=== PATIENT | female | born 1955 | race Caucasian/White ===

== ENCOUNTER 2017-01-10 13:00 | Day surgery (SDC) | payer MEDICARE, OTHER ==
[2017-01-09 09:52] VITALS: BMI 26.6
[~2017-01-10 13:00] MED LIST: LACTATED RINGERS 1,000 ML IV SCH; LIDOCAINE 1% 20 ML VIAL (10MG/ML) FOR IV START INTRADERMA PRN
[2017-01-10 14:10] VITALS: RESP 16; TEMP 97.6
[2017-01-10] MEDS ORDERED: PROPOFOL 10 MG/ML 20 ML VIAL IV ONE (15:05)
[2017-01-10] MEDS ORDERED: LIDOCAINE 1% INJ 10MG/ML (20 ML MDV) ONE (15:05)
--- NOTE | 2017-01-10 15:52 | P.PCN ---
Date of Procedure: 01/10/17 Procedure(s) Performed: Procedures: 1. Esophagogastroduodenoscopy and biopsy. 2. Colonoscopy and biopsy. Preoperative diagnosis: Abdominal pain and change in bowel habits. Postoperative diagnosis: 1. Small sliding hiatal hernia with no obvious esophagitis or complicated reflux disease. 2. Mild antral gastritis. 3. Multiple diminutive polyps in the distal sigmoid biopsied but no large polyps or cancer. 4. Colon shows no evidence of colitis. 5. Biopsies obtained from the duodenum, antrum, esophagus, right colon and sigmoid polyps. Preparation: HalfLytely prep. Sedation: Was provided by anesthesia. Brief clinical history: The patient is 61-year-old female who is referred for this evaluation for cause of abdominal pains and diarrhea that she has been experiencing for the last month or so. The patient has chronic stomach symptoms and history of peptic ulcer disease and mentioned that she has been always able to control her symptoms herself, however, this time the symptoms went on for too long with no control. She has nausea but no vomiting. No obvious bleeding. This would be her first upper and lower endoscopies. Procedure: With the patient on her left lateral decubitus position and after informed consent and adequate sedation, I passed the Olympus-GIF 160 video upper endoscope through the cricopharyngeus down the esophagus. GE junction was around 37-38 cm from the incisors and there was a small sliding hiatal hernia. The endoscope was then passed into the stomach which was insufflated with air and inspected in detail including the retroflex view in the cardia. Finally, the endoscope was passed through the pylorus into the duodenum. Pyloric channel, duodenal bulb, post bulbar area and descending duodenum appeared within normal limits. Antrum showed some mottling and erythema but no ulcers or erosions. The esophagus did not show any erosions, ulcers, strictures or Matthews's esophagus. I obtained biopsies from the duodenum, antrum and esophagus then the endoscope was withdrawn and I proceeded with the colonoscopy. Perianal area did not show any fissures or fistulas. There were no masses felt on digital rectal examination. The Olympus CFQ 160L video colonoscope was then inserted in the rectum in the usual fashion and advanced to the cecum. There were few scattered diminutive polyps in the distal sigmoid consistent with hyperplastic polyps, otherwise, the exam to the cecum showed healthy mucosa with no significant polyps or tumors or any obvious diverticular disease. I obtained biopsies from the right colon and from the sigmoid polyps then I retroflexed the endoscope in the rectum before the endoscope was withdrawn. The patient tolerated the procedure well. Plan: The patient was reassured. Will await pathology results and make further recommendations based on her course and biopsy results. She will follow-up with you as planned and I will be happy to see in the office of her symptoms persist.
[2017-01-10 16:13] VITALS: BP 132/66; PULSE 77
== END 2017-01-10 16:23 | disposition home or self-care (01) ==
LOC: ORWHC2ENDO 13:00
DX: K63.5 Polyp of colon (principal); K44.9 Diaphragmatic hernia without obstruction or gangrene; K29.70 Gastritis, unspecified, without bleeding; J44.9 Chronic obstructive pulmonary disease, unspecified; F17.200 Nicotine dependence, unspecified, uncomplicated; Z79.82 Long term (current) use of aspirin; Z79.891 Long term (current) use of opiate analgesic; Z79.899 Other long term (current) drug therapy; Z91.040 Latex allergy status
CPT/HCPCS: 88305; 88342; 45380; 43239; J2001; J2704

== ENCOUNTER → 2017-06-18 | Outpatient (CLI) | payer MEDICARE ==
--- NOTE | 2017-06-18 08:44 | MR ---
EXAMINATION TYPE: MR cspine/lspine wo con DATE OF EXAM: 06/18/2017 8:22 AM COMPARISON: 12/25/2012 HISTORY: Low back pain / Cervicalgia Multiplanar MultiSpin echo imaging of the cervical spine was performed. Comparison: none C2-C3: No evidence for degenerative disc disease. No disc bulge/herniation or protrusion. No Canal stenosis. Foramina are patent bilaterally. C3-C4: Mild disc desiccation. Posterocentral disc bulge. No evidence for cord contact or central sten osis. Foramina are patent bilaterally. C4-C5: Moderate disc desiccation. Posterior disc bulge with annular tear. Mild effacement ventral the lynn sac. No central stenosis. Degenerative change cervical apophyseal joints resulting in right-sided foraminal encroachment. C5-C6: Moderate disc desiccation. Circumferential disc bulge greatest posteriorly with partial encaps ulating spur resulting in disc endplate complex. Mild to moderate central stenosis identified. Early compressive myelopathy difficult to exclude. left greater than right foraminal encroachment. C6-C7: Moderate disc desiccation. Posterior disc bulge with partial encapsulating spur resulting in d isc endplate complex. Right foraminal encroachment. Constriction of the thecal sac without overt sten osis at this time. C7-T1: No evidence for degenerative disc disease. No disc bulge/herniation or protrusion. No Canal stenosis. Foramina are patent bilaterally. Cervical segments are intact. There is normal alignment. Cervical spinal cord is of normal signal. Craniovertebral junction relationships are within normal limits. IMPRESSION: 1. Multilevel degenerative disc disease with associated disc endplate complex. 2. 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 Findings are essentially sta ble relative to prior examination. EXAMINATION TYPE: MR cspine/lspine wo con DATE OF EXAM: 06/18/2017 8:22 AM COMPARISON: 12/25/2012 HISTORY: Low back pain / Cervicalgia Multiplanar, MultiSpin echo imaging of the lumbar spine was performed. L1-L2: Mild disc desiccation noted. No herniation, protrusion or disc bulging. No canal stenosis is present. Foramina are patent bilaterally. L2-L3: Mild disc desiccation noted. No herniation, protrusion or disc bulging. No canal stenosis i s present. Foramina are patent bilaterally. L3-L4: Mild disc desiccation noted. No herniation, protrusion or disc bulging. No canal stenosis is present. Foramina are patent bilaterally. L4-L5: Moderate disc desiccation noted. The left paracentral disc bulge with annular tear. Left later al recess stenosis and left foraminal encroachment. Facet joint arthropathy. No evidence for central stenosis. L5-S1: Normal disc appearance without desiccation. No herniation, protrusion or disc bulging. No ca nal stenosis is present. Foramina are patent bilaterally. Lumbar segments are intact. No paraspinal masses are identified. Conus medullaris has a normal appe arance. Scattered ventral spondylosis identified. IMPRESSION: 1. Stable multilevel degenerative disc disease. 2. Left paracentral disc bulge with annular tear L4-5 with left lateral recess stenosis and left fora [place] encroachment.
== END | disposition home or self-care (01) ==
LOC: RADMRIMAIN 07:32
PROVIDERS: ATTEND Psychiatry & Neurology Neurology
DX: M48.061 Spinal stenosis, lumbar region without neurogenic claudication (principal); M51.26 Other intervertebral disc displacement, lumbar region; M50.222 Other cervical disc displacement at C5-C6 level; M50.30 Other cervical disc degeneration, unspecified cervical region; M51.36 Other intervertebral disc degeneration, lumbar region; Z91.040 Latex allergy status
CPT/HCPCS: 72141; 72148